=== PATIENT | female | born 1935 | race Caucasian/White ===

== ENCOUNTER → 2019-07-16 | Outpatient (CLI) | payer BC, MEDICARE | LOC: FB.MH 08:00 | PROVIDERS: ATTEND Psychiatry & Neurology Psychiatry | DX: F41.1 Generalized anxiety disorder (principal); G30.9 Alzheimer's disease, unspecified; F02.81 Dementia in other diseases classified elsewhere, unspecified severity, with behavioral disturbance | CPT/HCPCS: 99213 ==

== ENCOUNTER 2020-02-08 12:50 | Observation (INO) | payer MEDICARE ==
--- NOTE | 2020-02-08 13:11 | EDM.PDOC ---
ED HPI GENERAL MEDICAL PROBLEM - General Stated Complaint: FALL Time Seen by Provider: 02/08/20 13:10 Source of Information: Reports: Patient History Limitations: Reports: No Limitations - History of Present Illness INITIAL COMMENTS - FREE TEXT/NARRATIVE: 84-year-old female who presents to the emergency department via private vehicle by her daughter from [facility] after the patient has had 2 falls over the past 3 days and has had progressively worsening weakness. She has a history of dementia and is disoriented on a regular basis. She is unable to give any history and history that I obtained is from the daughter reports from talking to the assisted living personnel and further information from the EMS personnel. Apparently she has had some left knee pain for quite some time and has been complaining of that but after her fall on she had more left knee pain and she fell on Monday and was complaining of some right sided chest and flank pain. She apparently has been eating and drinking normally. She has had no vomiting. She has had no reported difficulty breathing. There has been no cough or nasal congestion. There have been no fevers or chills. The patient is unable to quantitate or qualitate her pain. This is really only history that I can obtain. There are no other associated signs or symptoms. There are no other modifying factors. Onset: Other (Last 3 days) Duration: Getting Worse Location: Reports: Chest, Abdomen, Lower Extremity, Left (Left knee) Quality: Reports: Other (Unable to provide this information) Improves with: Reports: Rest Worsens with: Reports: Other (Palpation), Movement Context: Reports: Trauma Associated Symptoms: Reports: No Other Symptoms (Except as above.) Treatments GRAIN BROKER: Reports: Other (see below) (Nothing) Right Thoracic Pain Score (Numeric/FACES): 5 - Related Data Allergies Allergy/AdvReac Type Severity Reaction Status Date / Time acetaminophen [From Tylenol] Allergy Agitation Verified 02/08/20 13:34 Home Meds: Home Meds Aspirin [Halfprin] 81 mg PO DAILY 02/08/20 [History] Cholecalciferol (Vitamin D3) [Vitamin D3] 1,000 units PO DAILY 02/08/20 [History ] Clopidogrel Bisulfate [Clopidogrel] 75 mg PO DAILY 02/08/20 [History] Cyanocobalamin (Vitamin B-12) [Vitamin B-12] 1,000 mcg PO DAILY 02/08/20 [ History] Diclofenac Sodium [Voltaren 1% Gel] 4 gram TOP TID 02/08/20 [History] Donepezil HCl [Aricept] 10 mg PO DAILY 02/08/20 [History] Gabapentin [Neurontin] 200 mg PO BID 02/08/20 [History] Indapamide 1.25 mg PO MOWEFR 02/08/20 [History] Levothyroxine [Synthroid] 88 mcg PO SUTUWETHSA 02/08/20 [History] Levothyroxine [Synthroid] 132 mcg PO MOFR 02/08/20 [History] Magnesium Hydroxide [Milk of Magnesia] 30 ml PO DAILY PRN 02/08/20 [History] Memantine HCl [Namenda] 10 mg PO BID 02/08/20 [History] Metoprolol Tartrate 25 mg PO BID 02/08/20 [History] Mirtazapine [Remeron] 30 mg PO BEDTIME 02/08/20 [History] Potassium Chloride [Klor-Con 10] 10 meq PO DAILY 02/08/20 [History] QUEtiapine [SEROquel] 25 mg PO BID PRN 02/08/20 [History] QUEtiapine [SEROquel] 50 mg PO TID 02/08/20 [History] Sertraline [Zoloft] 25 mg PO DAILY 02/08/20 [History] amLODIPine [Norvasc] 5 mg PO DAILY 02/08/20 [History] lisinopriL [Lisinopril] 20 mg PO DAILY 02/08/20 [History] Past Medical History Cardiovascular History: Reports: High Cholesterol, Hypertension Genitourinary History: Reports: Chronic Renal Insuffiency (States 3) Neurological History: Reports: Other (See Below) (Dementia) - Past Surgical History Cardiovascular Surgical History: Reports: Carotid Endarterectomy (Left) GI Surgical History: Reports: Cholecystectomy Social & Family History - Tobacco Use Smoking Status *Q: Never Smoker - Alcohol Use Alcohol Use History: No - Living Situation & Occupation Living situation: Reports: Extended Care Facility (Patient resides at [facility].) Occupation: Retired ED ROS GENERAL - Review of Systems Review Of Systems: Unable To Obtain Reason Not Obtained: The patient cannot provide me this information 2nd to dementia. ED EXAM, GENERAL - Physical Exam Exam: See Below Exam Limited By: No Limitations General Appearance: No Apparent Distress, Obese, Other (She is asleep when I come in to evaluate her but she awakens easily and her but she is confused and cannot provide me with any information) Eye Exam: Bilateral Eye: EOMI, Normal Inspection Ears: Normal External Exam, Hearing Loss (Appear somewhat hard of hearing) Ear Exam: Bilateral Ear: Auricle Normal Nose: Normal Inspection, Normal Mucosa, No Blood Throat/Mouth: Normal Inspection, Normal Lips, Normal Oropharynx, Normal Voice, No Airway Compromise Head: Atraumatic, Normocephalic Neck: Normal Inspection, Supple, Non-Tender, Full Range of Motion Respiratory/Chest: No Respiratory Distress, Lungs Clear, Normal Breath Sounds, No Accessory Muscle Use, Chest Non-Tender Cardiovascular: Normal Peripheral Pulses, Regular Rate, Rhythm, No Edema Peripheral Pulses: 2+: Radial (L), Radial (R), Popliteal (R), Dorsalis Pedis (L) , Dorsalis Pedis (R) GI/Abdominal: Normal Bowel Sounds, Soft, No Mass, Tender (Overall right sided flank area.). No: Guarding Back Exam: Normal Inspection, Full Range of Motion Extremities: Normal Inspection, Normal Capillary Refill, Pedal Edema, Other ( Tenderness with palpation around the left knee. There is no effusion. There is no increased warmth.). No: Joint Swelling, Increased Warmth Neurological: Alert, CN II-XII Intact, No Motor/Sensory Deficits, Disoriented Skin Exam: Warm, Dry, Intact, Normal Color, No Rash Course - Vital Signs Last Recorded V/S: Last Vital Signs Temp 36.2 C 02/09/20 00:00 Pulse 86 02/09/20 00:00 Resp 20 02/09/20 00:00 BP 168/72 H 02/09/20 00:00 Pulse Ox 96 02/09/20 00:00 - Orders/Labs/Meds Orders: Active Orders 24 hr Category Date Time Status Insert Urinary Catheter [OM.PC] Q24H Care 02/08/20 13:45 Ordered Cervical Spine wo Cont [CT] Stat Exams 02/08/20 13:35 Taken Chest Abdomen Pelvis wo Cont [CT] Stat Exams 02/08/20 13:35 Taken Head wo Cont [CT] Stat Exams 02/08/20 13:35 Taken Knee 1V or 2V Lt [CR] Stat Exams 02/08/20 15:41 Taken CULTURE URINE [RM] Stat Lab 02/08/20 14:37 Received Medication Orders Amlodipine Besylate (Norvasc) 5 mg PO DAILY [facility] Aspirin (Halfprin) 81 mg PO DAILY [facility] Ceftriaxone Sodium (Rocephin) 1 gm IM Q24H [facility] Last Admin: 02/08/20 18:09 Dose: 1 gm Cholecalciferol (Vitamin D3) 25 mcg PO DAILY [facility] Clopidogrel Bisulfate (Plavix) 75 mg PO DAILY [facility] Cyanocobalamin (Vitamin B12) 1,000 mcg PO DAILY [facility] Diclofenac Sodium (Voltaren 1% Gel) 4 gm TOP TID [facility] Last Admin: 02/08/20 21:46 Dose: 1 applic Donepezil HCl (Aricept) 10 mg PO DAILY [facility] Gabapentin (Neurontin) 200 mg PO BID [facility] Last Admin: 02/08/20 20:13 Dose: 200 mg Ibuprofen (Motrin) 200 mg PO Q6H PRN PRN Reason: Pain (mild 1-3) Last Admin: 02/08/20 20:12 Dose: 200 mg Indapamide (Indapamide) 1.25 mg PO MoWeFr@0800 [facility] Levothyroxine Sodium (Synthroid) 88 mcg PO SUTUWETHSA [facility] Levothyroxine Sodium (Synthroid) 132 mcg PO MOFR [facility] Lisinopril (Prinivil) 20 mg PO DAILY [facility] Magnesium Hydroxide (Milk Of Magnesia) 30 ml PO DAILY PRN PRN Reason: Constipation Memantine (Namenda) 10 mg PO BID [facility] Last Admin: 02/08/20 20:12 Dose: 10 mg Metoprolol Tartrate (Lopressor) 25 mg PO BID [facility] Last Admin: 02/08/20 20:11 Dose: 25 mg Mirtazapine (Remeron) 30 mg PO BEDTIME [facility] Last Admin: 02/08/20 20:12 Dose: 30 mg Ondansetron HCl (Zofran Odt) 4 mg PO Q6H PRN PRN Reason: nausea, able to take PO Potassium Chloride (Klor-Con 10) 10 meq PO DAILY [facility] Quetiapine Fumarate (Seroquel) 50 mg PO TID [facility] Last Admin: 02/08/20 20:14 Dose: 50 mg Quetiapine Fumarate (Seroquel) 25 mg PO BID PRN PRN Reason: Agitation Last Admin: 02/08/20 19:18 Dose: 25 mg Sertraline HCl (Zoloft) 25 mg PO DAILY [facility] Tramadol HCl (Ultram) 50 mg PO Q8H PRN PRN Reason: Pain Labs: Laboratory Tests 02/08/20 02/08/20 02/08/20 Range/Units 14:25 14:25 14:37 WBC 6.8 (4.5-12.0) X10-3/uL RBC 4.09 (3.23-5.20) x10(6)uL Hgb 12.2 (11.5-15.5) g/dL Hct 38.8 (30.0-51.3) % MCV 94.8 (80-96) fL MCH 29.8 (27.7-33.6) pg MCHC 31.4 L (32.2-35.4) g/dL RDW 13.0 (11.5-15.5) % Plt Count 233 (125-369) X10(3)uL MPV 8.4 (7.4-10.4) fL Neut % (Auto) 65.6 (46-82) % Lymph % (Auto) 15.8 (13-37) % [place] % (Auto) 9.7 (4-12) % Eos % (Auto) 5 (1.0-5.0) % Baso % (Auto) 4 H (0-2) % Neut # (Auto) 4.4 (1.6-8.3) # Lymph # (Auto) 1.1 (0.6-5.0) # [place] # (Auto) 0.7 (0.0-1.3) # Eos # (Auto) 0.3 (0.0-0.8) # Baso # (Auto) 0.3 H (0.0-0.2) # Sodium 140 (135-145) mmol/L Potassium 4.1 (3.5-5.3) mmol/L Chloride 104 (100-110) mmol/L Carbon Dioxide 30 (21-32) mmol/L BUN 32 H (7-18) mg/dL Creatinine 1.7 H (0.55-1.02) mg/dL Est Cr Clr Drug Dosing TNP Estimated GFR (MDRD) 29 L (>60) BUN/Creatinine Ratio 18.8 (9-20) Glucose 121 H (80-116) mg/dL Calcium 8.9 (8.6-10.2) mg/dL Magnesium 1.7 L (1.8-2.5) mg/dL Total Bilirubin 0.3 (0.1-1.3) mg/dL AST 7 (5-25) IU/L ALT 16 (12-36) U/L Alkaline Phosphatase 94 (56-112) IU/L Total Protein 7.4 (6.0-8.0) g/dL Albumin 3.1 L (3.2-4.6) g/dL Globulin 4.3 g/dL Albumin/Globulin Ratio 0.7 Urine Color Yellow (YELLOW) Urine Appearance Slightly cloudy (CLEAR) Urine pH 5.0 (5.0-6.5) Ur Specific [place] 1.020 (1.010-1.025) Urine Protein Negative (NEGATIVE) mg/dL Urine Glucose (UA) Normal (NORMAL) mg/dL Urine Ketones Negative (NEGATIVE) mg/dL Urine Occult Blood Negative (NEGATIVE) Urine Nitrite Negative (NEGATIVE) Urine Bilirubin Negative (NEGATIVE) Urine Urobilinogen Normal (NEGATIVE) mg/dL Ur Leukocyte Esterase Negative (NEGATIVE) Urine RBC 0-5 (0-5) Urine WBC 0-5 (0-5) Ur Squamous Epith Cells Occasional (NS,R,O) Urine Bacteria Rare H (NS) Urine Mucus Few H (NS) Meds: Medications Generic Name Dose Route Start Last Admin Trade Name Freq PRN Reason Stop Dose Admin Amlodipine Besylate 5 mg 02/09/20 09:00 Norvasc PO DAILY [facility] Aspirin 81 mg 02/09/20 09:00 Halfprin PO DAILY [facility] Ceftriaxone Sodium 1 gm 02/08/20 17:00 02/08/20 18:09 Rocephin IM 1 gm Q24H [facility] Administration Cholecalciferol 25 mcg 02/09/20 09:00 Vitamin D3 PO DAILY [facility] Clopidogrel Bisulfate 75 mg 02/09/20 09:00 Plavix PO DAILY [facility] Cyanocobalamin 1,000 mcg 02/09/20 09:00 Vitamin B12 PO DAILY [facility] Diclofenac Sodium 4 gm 02/08/20 21:00 02/08/20 21:46 Voltaren 1% Gel TOP 1 applic TID [facility] Administration Donepezil HCl 10 mg 06/14/20 09:00 Aricept PO DAILY [facility] Gabapentin 200 mg 02/08/20 21:00 02/08/20 20:13 Neurontin PO 200 mg BID [facility] Administration Ibuprofen 200 mg 02/08/20 16:36 02/08/20 20:12 Motrin PO 200 mg Q6H PRN Administration Pain (mild 1-3) Indapamide 1.25 mg 02/10/20 08:00 Indapamide PO MoWeFr@0800 [facility] Levothyroxine Sodium 88 mcg 02/09/20 09:00 Synthroid PO SUTUWETHSA [facility] Levothyroxine Sodium 132 mcg 02/10/20 09:00 Synthroid PO MOFR [facility] Lisinopril 20 mg 02/09/20 09:00 Prinivil PO DAILY [facility] Magnesium Hydroxide 30 ml 02/08/20 16:40 Milk Of Magnesia PO DAILY PRN Constipation Memantine 10 mg 02/08/20 21:00 02/08/20 20:12 Namenda PO 10 mg BID [facility] Administration Metoprolol Tartrate 25 mg 02/08/20 21:00 02/08/20 20:11 Lopressor PO 25 mg BID [facility] Administration Mirtazapine 30 mg 02/08/20 21:00 02/08/20 20:12 Remeron PO 30 mg BEDTIME [facility] Administration Ondansetron HCl 4 mg 02/08/20 16:36 Zofran Odt PO Q6H PRN nausea, able to take PO Potassium Chloride 10 meq 02/09/20 09:00 Klor-Con 10 PO DAILY [facility] Quetiapine Fumarate 50 mg 02/08/20 21:00 02/08/20 20:14 Seroquel PO 50 mg TID [facility] Administration Quetiapine Fumarate 25 mg 02/08/20 16:40 02/08/20 19:18 Seroquel PO 25 mg BID PRN Administration Agitation Sertraline HCl 25 mg 02/09/20 09:00 Zoloft PO DAILY [facility] Tramadol HCl 50 mg 02/08/20 16:40 Ultram PO Q8H PRN Pain Discontinued Medications Generic Name Dose Route Start Last Admin Trade Name Freq PRN Reason Stop Dose Admin Tramadol HCl 50 mg 02/08/20 13:35 02/08/20 13:43 Ultram PO 02/08/20 13:36 50 mg ONETIME ONE Administration - Radiology Interpretation Free Text/Narrative:: CT scan of head, neck, chest, abdomen and pelvis all done without contrast showed no acute abnormalities per the [facility] radiologist. - Re-Assessments/Exams Free Text/Narrative Re-Assessment/Exam: 02/08/20 16:45: The patient's blood tests are reassuring. Her urine test does show some evidence of a urinary tract infection. The CT scans of her head, neck , chest, abdomen and pelvis shows no acute abnormality. The x-ray of her left knee is pending at this point. She is really not able to ambulate without extreme assistance that she has fallen twice in the past 3 days with progressive weakness. She does appear retracted infection. I do not feel that it would be safe to discharge her back to the memory care unit. She is at significant risk for further falls and ability and even mortality. The patient is DNR/DNI according to the family what they would want reversible causes treated and they would want the patient to be able to get back to baseline if possible. Therefore, the patient will be admitted. She will be treated with IV antibiotics and will have physical therapy and occupational therapy evaluation over the next 2 days. I discussed patient's case with Dr. Hammer, hospitalist , and she has agreed to admit the patient. I discussed this with the patient's daughter and the patient's daughter is in agreement with the plan for admission. Departure - Departure Time of Disposition: 17:00 Disposition: Refer to Observation Condition: Fair (Stable) Clinical Impression: Multiple falls, Rapidly progressive weakness UTI (urinary tract infection) Qualifiers: Urinary tract infection type: site unspecified Hematuria presence: without hematuria Qualified Code(s): N39.0 - Urinary tract infection, site not specified - Discharge Information Sepsis Event Note (ED) - Focused Exam Vital Signs: Vital Signs Temp Pulse Resp BP Pulse Ox 02/08/20 12:50 36.3 C 72 16 128/53 L 94 L - My Orders Last 24 Hours: My Active Orders 02/08/20 13:35 Cervical Spine wo Cont [CT] Stat Chest Abdomen Pelvis wo Cont [CT] Stat Head wo Cont [CT] Stat 02/08/20 13:45 Insert Urinary Catheter [OM.PC] Q24H 02/08/20 14:37 CULTURE URINE [RM] Stat 02/08/20 15:41 Knee 1V or 2V Lt [CR] Stat - Assessment/Plan Last 24 Hours: My Active Orders 02/08/20 13:35 Cervical Spine wo Cont [CT] Stat Chest Abdomen Pelvis wo Cont [CT] Stat Head wo Cont [CT] Stat 02/08/20 13:45 Insert Urinary Catheter [OM.PC] Q24H 02/08/20 14:37 CULTURE URINE [RM] Stat 02/08/20 15:41 Knee 1V or 2V Lt [CR] Stat
[2020-02-08] MEDS ORDERED: traMADol 50 MG Tab PO ONE (13:35)
[2020-02-08] MEDS ORDERED: Ondansetron 4 MG Tab.DIS PO PRN (16:36)
[2020-02-08] MEDS ORDERED: QUEtiapine 25 MG Tab PO PRN (16:40)
[2020-02-08] MEDS ORDERED: Magnesium Hydroxide 400 MG/5 ML Susp 30 ML Cup PO PRN (16:40)
--- NOTE | 2020-02-08 16:52 | PCM.HP.2 ---
H&P History of Present Illness - General Date of Service: 02/08/20 Admit Problem/Dx: Admission Diagnosis/Problem Admission Diagnosis/Problem Recurrent falls, Right chest wall pain, Left knee pain, UTI-suspected Source of Information: Patient (limited), EMS Notes Reviewed, Family, Provider - History of Present Illness Initial Comments - Free Text/Narative: Lissy is an 84 yr old female who was brought in by her daughter to ER with history of recurrent falls over the past 2 days. Fell initially on , was complaining of left knee pain but got up and was ambulating on it. Fell again yesterday, complaining of right side chest pain which worsened today. History of Dementia, in the memory care unit at [facility], has wander guard on left leg. Jyothi, her daughter has not seen her since July due to COVID restrictions at [facility], does not feel her confusion is worse. She is on Seroquel as she was having more wild behaviors which has stabilized with the medication. Jyothi stated that Dr Melendez was hoping to decrease it to the lowest dose while maintaining symptom control. She has not had loss of appetite, eats all her food. Does not wear hearing aids. No shortness of breath , sinus symptoms, fevers, chills, abdominal pain. CT head to pelvis was negative for acute changes. Slightly cloudy urine with some bacteria on straight cathed urine/ Knee x-ray was negative for fracture. Jyothi will be bringing her medications from [facility]) for her use. She is a DNR/ DNI. Gets agitated on acetaminophen. Has urine incontinence, wears briefs. Wears PAWEL hose at [facility]. - Related Data Allergies/Adverse Reactions: Allergies Allergy/AdvReac Type Severity Reaction Status Date / Time acetaminophen [From Tylenol] Allergy Agitation Verified 02/08/20 13:34 Home Medications: Home Meds Aspirin [Halfprin] 81 mg PO DAILY 02/08/20 [History] Cholecalciferol (Vitamin D3) [Vitamin D3] 1,000 units PO DAILY 02/08/20 [History ] Clopidogrel Bisulfate [Clopidogrel] 75 mg PO DAILY 02/08/20 [History] Cyanocobalamin (Vitamin B-12) [Vitamin B-12] 1,000 mcg PO DAILY 02/08/20 [ History] Diclofenac Sodium [Voltaren 1% Gel] 4 gram TOP TID 02/08/20 [History] Donepezil HCl [Aricept] 10 mg PO DAILY 02/08/20 [History] Gabapentin [Neurontin] 200 mg PO BID 02/08/20 [History] Indapamide 1.25 mg PO MOWEFR 02/08/20 [History] Levothyroxine [Synthroid] 88 mcg PO SUTUWETHSA 02/08/20 [History] Levothyroxine [Synthroid] 132 mcg PO MOFR 02/08/20 [History] Magnesium Hydroxide [Milk of Magnesia] 30 ml PO DAILY PRN 02/08/20 [History] Memantine HCl [Namenda] 10 mg PO BID 02/08/20 [History] Metoprolol Tartrate 25 mg PO BID 02/08/20 [History] Mirtazapine [Remeron] 30 mg PO BEDTIME 02/08/20 [History] Potassium Chloride [Klor-Con 10] 10 meq PO DAILY 02/08/20 [History] QUEtiapine [SEROquel] 25 mg PO BID PRN 02/08/20 [History] QUEtiapine [SEROquel] 50 mg PO TID 02/08/20 [History] Sertraline [Zoloft] 25 mg PO DAILY 02/08/20 [History] amLODIPine [Norvasc] 5 mg PO DAILY 02/08/20 [History] lisinopriL [Lisinopril] 20 mg PO DAILY 02/08/20 [History] H&P Review of Systems - Review of Systems: Review Of Systems: See Below General: Reports: No Symptoms HEENT: Reports: No Symptoms Pulmonary: Reports: No Symptoms Cardiovascular: Reports: Chest Pain Gastrointestinal: Reports: No Symptoms Genitourinary: Reports: No Symptoms Musculoskeletal: Reports: Joint Pain (left knee) Psychiatric: Reports: Confusion Neurological: Denies: Trouble Speaking Hematologic/Lymphatic: Reports: No Symptoms Immunologic: Reports: No Symptoms Exam - Exam Exam: See Below - Vital Signs Vital Signs: Last Vital Signs Temp 97.4 F 02/08/20 12:50 Pulse 72 02/08/20 12:50 Resp 16 02/08/20 12:50 BP 128/53 L 02/08/20 12:50 Pulse Ox 94 L 02/08/20 12:50 Weight: 190 lb - Exam General: Alert, Oriented (person, but not place or time), Cooperative. No: Mild Distress HEENT: PERRLA, Conjunctiva Clear, EOMI, Hearing Intact, Mucosa Moist & Silo, Nares Patent, Normal Nasal Septum, Posterior Pharynx Clear, TMs Clear Neck: Supple, Trachea Midline. No: Lymphadenopathy Lungs: Clear to Auscultation, Normal Respiratory Effort, Other (TTP on right side, no step offs noted) Cardiovascular: Regular Rate, Regular Rhythm GI/Abdominal Exam: Normal Bowel Sounds, Soft, Non-Tender, No Distention (Female) Exam: Deferred Rectal (Female) Exam: Deferred Extremities: Pedal Edema (trace, PAWEL hose BLE, wander guard on LLE), Joint Swelling (left prepatellar, NT) Skin: Warm, Dry, Intact. No: Ecchymosis (left knee) Neuro Extensive - Mental Status: Disorientation to Place, Disorientation to Time , Memory Loss-Recent Events (does not recognize her daughter anymore) Neuro Extensive - Motor, Sensory, Reflexes: CN II-XII Intact Psychiatric: No: Labile Mood, Anxious, Agitated - Patient Data Lab Results Last 24 hrs: Laboratory Results - last 24 hr 02/08/20 02/08/20 02/08/20 Range/Units 14:25 14:25 14:37 WBC 6.8 (4.5-12.0) X10-3/uL RBC 4.09 (3.23-5.20) x10(6)uL Hgb 12.2 (11.5-15.5) g/dL Hct 38.8 (30.0-51.3) % MCV 94.8 (80-96) fL MCH 29.8 (27.7-33.6) pg MCHC 31.4 L (32.2-35.4) g/dL RDW 13.0 (11.5-15.5) % Plt Count 233 (125-369) X10(3)uL MPV 8.4 (7.4-10.4) fL Neut % (Auto) 65.6 (46-82) % Lymph % (Auto) 15.8 (13-37) % [place] % (Auto) 9.7 (4-12) % Eos % (Auto) 5 (1.0-5.0) % Baso % (Auto) 4 H (0-2) % Neut # (Auto) 4.4 (1.6-8.3) # Lymph # (Auto) 1.1 (0.6-5.0) # Weston # (Auto) 0.7 (0.0-1.3) # Eos # (Auto) 0.3 (0.0-0.8) # Baso # (Auto) 0.3 H (0.0-0.2) # Sodium 140 (135-145) mmol/L Potassium 4.1 (3.5-5.3) mmol/L Chloride 104 (100-110) mmol/L Carbon Dioxide 30 (21-32) mmol/L BUN 32 H (7-18) mg/dL Creatinine 1.7 H (0.55-1.02) mg/dL Est Cr Clr Drug Dosing TNP Estimated GFR (MDRD) 29 L (>60) BUN/Creatinine Ratio 18.8 (9-20) Glucose 121 H (80-116) mg/dL Calcium 8.9 (8.6-10.2) mg/dL Magnesium 1.7 L (1.8-2.5) mg/dL Total Bilirubin 0.3 (0.1-1.3) mg/dL AST 7 (5-25) IU/L ALT 16 (12-36) U/L Alkaline Phosphatase 94 (56-112) IU/L Total Protein 7.4 (6.0-8.0) g/dL Albumin 3.1 L (3.2-4.6) g/dL Globulin 4.3 g/dL Albumin/Globulin Ratio 0.7 Urine Color Yellow (YELLOW) Urine Appearance Slightly cloudy (CLEAR) Urine pH 5.0 (5.0-6.5) Ur Specific [place] 1.020 (1.010-1.025) Urine Protein Negative (NEGATIVE) mg/dL Urine Glucose (UA) Normal (NORMAL) mg/dL Urine Ketones Negative (NEGATIVE) mg/dL Urine Occult Blood Negative (NEGATIVE) Urine Nitrite Negative (NEGATIVE) Urine Bilirubin Negative (NEGATIVE) Urine Urobilinogen Normal (NEGATIVE) mg/dL Ur Leukocyte Esterase Negative (NEGATIVE) Urine RBC 0-5 (0-5) Urine WBC 0-5 (0-5) Ur Squamous Epith Cells Occasional (NS,R,O) Urine Bacteria Rare H (NS) Urine Mucus Few H (NS) Result Diagrams: 02/08/20 14:25 02/08/20 14:25 Sepsis Event Note - Evaluation Sepsis Screening Result: No Definite Risk - Focused Exam Vital Signs: Vital Signs Temp Pulse Resp BP Pulse Ox 02/08/20 12:50 97.4 F 72 16 128/53 L 94 L Date Exam was Performed: 02/08/20 Time Exam was Performed: 16:44 *Q Meaningful Use (ADM) - VTE *Q VTE Mechanical Contraindications *Q: At Risk for Falls - VTE Risk Assess *Q Each Risk Factor Represents 3 Points: Age 75 Years or Greater Total Score 3 Point Risk Factors: 3 - Problem List (1) Recurrent falls SNOMED Code(s): 148380865 ICD Code: R29.6 - REPEATED FALLS Status: Acute Current Visit: Yes Onset Date: ~02/06/20 Problem Details: and 02/07/2020 (2) Right-sided chest wall pain SNOMED Code(s): 049658179, 519905019 ICD Code: R07.89 - OTHER CHEST PAIN Status: Acute Current Visit: Yes Onset Date: ~02/07/20 (3) Left knee pain SNOMED Code(s): 98190714 ICD Code: M25.562 - PAIN IN LEFT KNEE Status: Acute Current Visit: Yes Onset Date: ~02/06/20 (4) UTI (urinary tract infection) SNOMED Code(s): 68967093 ICD Code: N39.0 - URINARY TRACT INFECTION, SITE NOT SPECIFIED Status: Acute Current Visit: Yes Qualifiers: Urinary tract infection type: acute cystitis Hematuria presence: without hematuria Qualified Code(s): N30.00 - Acute cystitis without hematuria (5) Dementia with behavioral disturbance SNOMED Code(s): 8266690685702 ICD Code: F03.91 - UNSPECIFIED DEMENTIA WITH BEHAVIORAL DISTURBANCE Status : Chronic Current Visit: Yes Qualifiers: Dementia type: unspecified type Qualified Code(s): F03.91 - Unspecified dementia with behavioral disturbance (6) Adult hypothyroidism SNOMED Code(s): 39191956 ICD Code: E03.9 - HYPOTHYROIDISM, UNSPECIFIED Status: Chronic Current Visit: Yes (7) Hypertension SNOMED Code(s): 38892392 ICD Code: I10 - ESSENTIAL (PRIMARY) HYPERTENSION Status: Chronic Current Visit: Yes Qualifiers: Hypertension type: essential hypertension Qualified Code(s): I10 - Essential (primary) hypertension Problem List Initiated/Reviewed/Updated: Yes Orders Last 24hrs: Active Orders 24 hr Category Date Time Status Admission Status [Patient Status] [ADT] Routine ADT 02/08/20 16:16 Active Antiembolic Devices [RC] .Routine Care 02/08/20 16:36 Ordered Insert Urinary Catheter [OM.PC] Q24H Care 02/08/20 13:45 Ordered Oxygen Therapy [RC] PRN Care 02/08/20 16:36 Ordered Up With Assistance [RC] ASDIRECTED Care 02/08/20 16:36 Ordered Up to Chair [RC] ASDIRECTED Care 02/08/20 16:36 Ordered Urinary Catheter Assessment [RC] QSHIFT Care 02/08/20 13:36 Active VTE/DVT Education [RC] Per Unit Routine Care 02/08/20 16:36 Ordered Vital Signs [RC] Q4H Care 02/08/20 16:36 Ordered OT Evaluation and Treatment [CONS] Routine Cons 02/08/20 16:36 Ordered PT Evaluation and Treatment [CONS] Routine Cons 02/10/20 06:00 Ordered Regular Diet [DIET] Diet 02/08/20 Dinner Ordered Cervical Spine wo Cont [CT] Stat Exams 02/08/20 13:35 Ordered Chest Abdomen Pelvis wo Cont [CT] Stat Exams 02/08/20 13:35 Taken Head wo Cont [CT] Stat Exams 02/08/20 13:35 Taken Knee 1V or 2V Lt [CR] Stat Exams 02/08/20 15:41 Taken BASIC METABOLIC PANEL,BMP [CHEM] Routine Lab 02/09/20 06:00 Ordered CULTURE URINE [RM] Stat Lab 02/08/20 14:37 Received Aspirin [Halfprin] Med 02/09/20 09:00 Ordered 81 mg PO DAILY Cholecalciferol (Vitamin D3) [Vitamin D3] Med 02/09/20 09:00 Ordered 1,000 units PO DAILY Clopidogrel Bisulfate [Clopidogrel] Med 02/09/20 09:00 Ordered 75 mg PO DAILY Cyanocobalamin (Vitamin B-12) [Vitamin B-12] Med 02/09/20 09:00 Ordered 1,000 mcg PO DAILY Diclofenac Sodium [Voltaren 1% Gel] Med 02/08/20 21:00 Ordered 4 gram TOP TID Donepezil HCl [Aricept] Med 02/09/20 09:00 Ordered 10 mg PO DAILY Gabapentin [Neurontin] Med 02/08/20 21:00 Ordered 200 mg PO BID Ibuprofen [Motrin] Med 02/08/20 16:36 Ordered 200 mg PO Q6H PRN Indapamide [Indapamide] Med 02/10/20 16:40 Ordered 1.25 mg PO MOWEFR Levothyroxine [Synthroid] Med 02/10/20 09:00 Ordered 132 mcg PO MOFR Levothyroxine [Synthroid] Med 02/09/20 09:00 Ordered 88 mcg PO SUTUWETHSA Magnesium Hydroxide [Milk of Magnesia] Med 02/08/20 16:40 Ordered 30 ml PO DAILY PRN Memantine HCl [Namenda] Med 02/08/20 21:00 Ordered 10 mg PO BID Metoprolol Tartrate [Metoprolol Tartrate] Med 02/08/20 21:00 Ordered 25 mg PO BID Mirtazapine [Remeron] Med 02/08/20 21:00 Ordered 30 mg PO BEDTIME Ondansetron [Zofran ODT] Med 02/08/20 16:36 Ordered 4 mg PO Q6H PRN Potassium Chloride [Klor-Con 10] Med 02/09/20 09:00 Ordered 10 meq PO DAILY QUEtiapine [SEROquel] Med 02/08/20 16:40 Ordered 25 mg PO BID PRN QUEtiapine [SEROquel] Med 02/08/20 21:00 Ordered 50 mg PO TID Sertraline [Zoloft] Med 02/09/20 09:00 Ordered 25 mg PO DAILY amLODIPine [Norvasc] Med 02/09/20 09:00 Ordered 5 mg PO DAILY cefTRIAXone [Rocephin] Med 02/08/20 16:45 Ordered 1 gm IM Q24H lisinopriL [Lisinopril] Med 02/09/20 09:00 Ordered 20 mg PO DAILY traMADol [Ultram] Med 02/08/20 16:40 Ordered 50 mg PO Q8H PRN Antiembolic Hose [OM.PC] Per Unit Routine Oth 02/08/20 16:36 Ordered Resuscitation Status Routine Resus Stat 02/08/20 16:36 Ordered Medication Orders Ceftriaxone Sodium (Rocephin) 1 gm IM Q24H RHIANNON Ibuprofen (Motrin) 200 mg PO Q6H PRN PRN Reason: Pain (mild 1-3) Non-Formulary Medication (Amlodipine [Norvasc]) 5 mg PO DAILY RHIANNON Non-Formulary Medication (Aspirin [Halfprin]) [address] [facility] Non-Formulary Medication (Cholecalciferol (Vitamin D3) [Vitamin D3]) 1,000 units PO DAILY RHIANNON Non-Formulary Medication (Clopidogrel Bisulfate [Clopidogrel]) 75 mg PO DAILY RHIANNON Non-Formulary Medication (Cyanocobalamin (Vitamin B-12) [Vitamin B-12]) 1,000 mcg PO DAILY RHIANNON Non-Formulary Medication (Diclofenac Sodium [Voltaren 1% Gel]) 4 gram TOP TID RHIANNON Non-Formulary Medication (Donepezil Hcl [Aricept]) 10 mg PO DAILY RHIANNON Non-Formulary Medication (Gabapentin [Neurontin]) 200 mg PO BID RHIANNON Non-Formulary Medication (Indapamide [Indapamide]) 1.25 mg PO MOWEFR RHIANNON Non-Formulary Medication (Levothyroxine [Synthroid]) 88 mcg PO SUTUWETHSA RHIANNON Non-Formulary Medication (Levothyroxine [Synthroid]) 132 mcg PO MOFR RHIANNON Non-Formulary Medication (Lisinopril [Lisinopril]) 20 mg PO DAILY RHIANNON Non-Formulary Medication (Magnesium Hydroxide [Milk Of Magnesia]) 30 ml PO DAILY PRN PRN Reason: Constipation Non-Formulary Medication (Memantine Hcl [Namenda]) 10 mg PO BID RHIANNON Non-Formulary Medication (Metoprolol Tartrate [Metoprolol Tartrate]) 25 mg PO BID RHIANNON Non-Formulary Medication (Mirtazapine [Remeron]) 30 mg PO BEDTIME RHIANNON Non-Formulary Medication (Potassium Chloride [Klor-Con 10]) 10 meq PO DAILY RHIANNON Non-Formulary Medication (Quetiapine [Seroquel]) 50 mg PO TID RHIANNON Non-Formulary Medication (Quetiapine [Seroquel]) 25 mg PO BID PRN PRN Reason: Agitation Non-Formulary Medication (Sertraline [Zoloft]) [address] [facility] Ondansetron HCl (Zofran Odt) 4 mg PO Q6H PRN PRN Reason: nausea, able to take PO Tramadol HCl (Ultram) 50 mg PO Q8H PRN PRN Reason: Pain Assessment/Plan Comment:: 1. Admit for observation for suspected UTI, recurrent falls. 2. Rocephin 1 g IM q24h while UC is pending. Continue home medications, family will bring in her cassettes from [facility]) 3. PT/OT consult for Monday am. Tramadol 50 mg q8h as needed pain, Ibuprofen low dose 200 mg as needed will not affect her kidney function. Repeat BMP tomorrow. 4. Regular diet. 5. Up with assistance and up to chair TID. 6. DVT prophylaxis: PAWELs BLE already on from [facility]. 7. DNR/DNI per daughter Jyothi. 8. Anticipate discharge to [facility] on Monday after PT/OT assessment with Home Health with therapies - Mortality Measure Prognosis:: Good
[2020-02-08] MEDS ORDERED: cefTRIAXone 1 GM Vial IM SCH (17:00)
[2020-02-08] MEDS: Metoprolol Tartrate 25 MG Tab *PTOM PO SCH (20:11)
[2020-02-08] MEDS: Mirtazapine 30 MG Tab PO SCH (20:12)
[2020-02-08] MEDS: Ibuprofen 200 MG Tab PO PRN (20:12)
[2020-02-08] MEDS: Memantine 10 MG Tab *PTOM PO SCH (20:12)
[2020-02-08] MEDS: Gabapentin 100 MG Cap PO SCH (20:13)
[2020-02-08] MEDS: QUEtiapine 25 MG Tab PO SCH (20:14)
[2020-02-08] MEDS: Diclofenac Sodium 1% Gel 100 GM Tube TOP SCH (21:46)
[2020-02-09] MEDS: Potassium Chloride 10 MEQ Tab.ER *PTOM PO SCH (08:03)
[2020-02-09] MEDS: Metoprolol Tartrate 25 MG Tab *PTOM PO SCH ×2 (08:04→20:42)
[2020-02-09] MEDS: Memantine 10 MG Tab *PTOM PO SCH ×2 (08:05→20:42)
[2020-02-09] MEDS: Lisinopril 20 MG Tab *PTOM PO SCH (08:06)
[2020-02-09] MEDS: amLODIPine 5 MG Tab *PTOM PO SCH (08:06)
[2020-02-09] MEDS: Clopidogrel 75 MG Tab *PTOM PO SCH (08:06)
[2020-02-09] MEDS: Gabapentin 100 MG Cap PO SCH ×2 (08:06→20:42)
[2020-02-09] MEDS: Cholecalciferol (Vitamin D3) 25 MCG Tab *PTOM PO SCH (08:07)
[2020-02-09] MEDS: QUEtiapine 25 MG Tab PO SCH ×3 (08:07→20:42)
[2020-02-09] MEDS: traMADol 50 MG Tab PO PRN (08:08)
[2020-02-09] MEDS: Diclofenac Sodium 1% Gel 100 GM Tube TOP SCH ×3 (08:13→20:44)
[2020-02-09] MEDS: Cyanocobalamin (Vitamin B12) 1,000 MCG Tab *PTOM PO SCH (08:32)
[2020-02-09] MEDS ORDERED: Sertraline 25 MG Tab PO SCH (09:00)
[2020-02-09] MEDS ORDERED: Aspirin 81 MG Tab.EC *PTOM PO SCH (09:00)
[2020-02-09] MEDS ORDERED: Donepezil 10 MG Tab PO SCH (09:00)
[2020-02-09] MEDS ORDERED: Levothyroxine 88 MCG Tab PO SCH (09:00)
--- NOTE | 2020-02-09 10:01 | PCM.PN ---
- General Info Date of Service: 02/09/20 Admission Dx/Problem (Free Text): Lissy was agitated, crying and upset last evening so was at nurses station until she became more calm, did require an as needed Seroquel dose. She fell asleep around 1230 am even with taking all her evening medications. She ate 100 % of her breakfast this morning, no issues with her morning medications. Nursing notes that when she wants to get up she moves very quickly. Has been incontinent. Pleasantly confused this morning, oriented to person only. Vitals are stable. Denies any pain of chest wall or knees until I did my exam. - Patient Data Vitals - Most Recent: Last Vital Signs Temp 97.5 F 02/09/20 07:20 Pulse 71 02/09/20 08:04 Resp 20 02/09/20 07:20 BP 167/86 H 02/09/20 08:06 Pulse Ox 93 L 02/09/20 07:20 Weight - Most Recent: 190 lb Lab Results Last 24 Hours: Laboratory Results - last 24 hr 02/08/20 02/08/20 02/08/20 Range/Units 14:25 14:25 14:37 WBC 6.8 (4.5-12.0) X10-3/uL RBC 4.09 (3.23-5.20) x10(6)uL Hgb 12.2 (11.5-15.5) g/dL Hct 38.8 (30.0-51.3) % MCV 94.8 (80-96) fL MCH 29.8 (27.7-33.6) pg MCHC 31.4 L (32.2-35.4) g/dL RDW 13.0 (11.5-15.5) % Plt Count 233 (125-369) X10(3)uL MPV 8.4 (7.4-10.4) fL Neut % (Auto) 65.6 (46-82) % Lymph % (Auto) 15.8 (13-37) % [place] % (Auto) 9.7 (4-12) % Eos % (Auto) 5 (1.0-5.0) % Baso % (Auto) 4 H (0-2) % Neut # (Auto) 4.4 (1.6-8.3) # Lymph # (Auto) 1.1 (0.6-5.0) # [place] # (Auto) 0.7 (0.0-1.3) # Eos # (Auto) 0.3 (0.0-0.8) # Baso # (Auto) 0.3 H (0.0-0.2) # Sodium 140 (135-145) mmol/L Potassium 4.1 (3.5-5.3) mmol/L Chloride 104 (100-110) mmol/L Carbon Dioxide 30 (21-32) mmol/L BUN 32 H (7-18) mg/dL Creatinine 1.7 H (0.55-1.02) mg/dL Est Cr Clr Drug Dosing TNP Estimated GFR (MDRD) 29 L (>60) BUN/Creatinine Ratio 18.8 (9-20) Glucose 121 H (80-116) mg/dL Calcium 8.9 (8.6-10.2) mg/dL Magnesium 1.7 L (1.8-2.5) mg/dL Total Bilirubin 0.3 (0.1-1.3) mg/dL AST 7 (5-25) IU/L ALT 16 (12-36) U/L Alkaline Phosphatase 94 (56-112) IU/L Total Protein 7.4 (6.0-8.0) g/dL Albumin 3.1 L (3.2-4.6) g/dL Globulin 4.3 g/dL Albumin/Globulin Ratio 0.7 Urine Color Yellow (YELLOW) Urine Appearance Slightly cloudy (CLEAR) Urine pH 5.0 (5.0-6.5) Ur Specific [place] 1.020 (1.010-1.025) Urine Protein Negative (NEGATIVE) mg/dL Urine Glucose (UA) Normal (NORMAL) mg/dL Urine Ketones Negative (NEGATIVE) mg/dL Urine Occult Blood Negative (NEGATIVE) Urine Nitrite Negative (NEGATIVE) Urine Bilirubin Negative (NEGATIVE) Urine Urobilinogen Normal (NEGATIVE) mg/dL Ur Leukocyte Esterase Negative (NEGATIVE) Urine RBC 0-5 (0-5) Urine WBC 0-5 (0-5) Ur Squamous Epith Cells Occasional (NS,R,O) Urine Bacteria Rare H (NS) Urine Mucus Few H (NS) 02/08/ Range/Units 06:25 WBC (4.5-12.0) X10-3/uL RBC (3.23-5.20) x10(6)uL Hgb (11.5-15.5) g/dL Hct (30.0-51.3) % MCV (80-96) fL MCH (27.7-33.6) pg MCHC (32.2-35.4) g/dL RDW (11.5-15.5) % Plt Count (125-369) X10(3)uL MPV (7.4-10.4) fL Neut % (Auto) (46-82) % Lymph % (Auto) (13-37) % [place] % (Auto) (4-12) % Eos % (Auto) (1.0-5.0) % Baso % (Auto) (0-2) % Neut # (Auto) (1.6-8.3) # Lymph # (Auto) (0.6-5.0) # [place] # (Auto) (0.0-1.3) # Eos # (Auto) (0.0-0.8) # Baso # (Auto) (0.0-0.2) # Sodium 141 (135-145) mmol/L Potassium 3.9 (3.5-5.3) mmol/L Chloride 107 (100-110) mmol/L Carbon Dioxide 29 (21-32) mmol/L BUN 36 H (7-18) mg/dL Creatinine 1.6 H (0.55-1.02) mg/dL Est Cr Clr Drug Dosing 24.50 Estimated GFR (MDRD) 31 L (>60) BUN/Creatinine Ratio 22.5 H (9-20) Glucose 93 (80-116) mg/dL Calcium 8.5 L (8.6-10.2) mg/dL Magnesium (1.8-2.5) mg/dL Total Bilirubin (0.1-1.3) mg/dL AST (5-25) IU/L ALT (12-36) U/L Alkaline Phosphatase (56-112) IU/L Total Protein (6.0-8.0) g/dL Albumin (3.2-4.6) g/dL Globulin g/dL Albumin/Globulin Ratio Urine Color (YELLOW) Urine Appearance (CLEAR) Urine pH (5.0-6.5) Ur Specific [place] (1.010-1.025) Urine Protein (NEGATIVE) mg/dL Urine Glucose (UA) (NORMAL) mg/dL Urine Ketones (NEGATIVE) mg/dL Urine Occult Blood (NEGATIVE) Urine Nitrite (NEGATIVE) Urine Bilirubin (NEGATIVE) Urine Urobilinogen (NEGATIVE) mg/dL Ur Leukocyte Esterase (NEGATIVE) Urine RBC (0-5) Urine WBC (0-5) Ur Squamous Epith Cells (NS,R,O) Urine Bacteria (NS) Urine Mucus (NS) Med Orders - Current: Current Medications Amlodipine Besylate (Norvasc) 5 mg PO DAILY [facility] Last Admin: 02/09/20 08:06 Dose: 5 mg Aspirin (Halfprin) 81 mg PO DAILY [facility] Last Admin: 02/09/20 08:03 Dose: 81 mg Ceftriaxone Sodium (Rocephin) 1 gm IM Q24H [facility] Last Admin: 02/08/20 18:09 Dose: 1 gm Cholecalciferol (Vitamin D3) 25 mcg PO DAILY [facility] Last Admin: 02/09/20 08:07 Dose: 25 mcg Clopidogrel Bisulfate (Plavix) 75 mg PO DAILY [facility] Last Admin: 02/09/20 08:06 Dose: 75 mg Cyanocobalamin (Vitamin B12) 1,000 mcg PO DAILY [facility] Last Admin: 02/09/20 08:32 Dose: 1,000 mcg Diclofenac Sodium (Voltaren 1% Gel) 4 gm TOP TID [facility] Last Admin: 02/09/20 08:13 Dose: 1 applic Donepezil HCl (Aricept) 10 mg PO DAILY [facility] Last Admin: 02/09/20 08:03 Dose: 10 mg Gabapentin (Neurontin) 200 mg PO BID [facility] Last Admin: 02/09/20 08:06 Dose: 200 mg Ibuprofen (Motrin) 200 mg PO Q6H PRN PRN Reason: Pain (mild 1-3) Last Admin: 02/08/20 20:12 Dose: 200 mg Indapamide (Indapamide) 1.25 mg PO MoWeFr@0800 [facility] Levothyroxine Sodium (Synthroid) 88 mcg PO SUTUWETHSA [facility] Last Admin: 02/09/20 08:31 Dose: 88 mcg Levothyroxine Sodium (Synthroid) 132 mcg PO MOFR [facility] Lisinopril (Prinivil) 20 mg PO DAILY [facility] Last Admin: 02/09/20 08:06 Dose: 20 mg Magnesium Hydroxide (Milk Of Magnesia) 30 ml PO DAILY PRN PRN Reason: Constipation Memantine (Namenda) 10 mg PO BID [facility] Last Admin: 02/09/20 08:05 Dose: 10 mg Metoprolol Tartrate (Lopressor) 25 mg PO BID [facility] Last Admin: 02/09/20 08:04 Dose: 25 mg Mirtazapine (Remeron) 30 mg PO BEDTIME [facility] Last Admin: 02/08/20 20:12 Dose: 30 mg Ondansetron HCl (Zofran Odt) 4 mg PO Q6H PRN PRN Reason: nausea, able to take PO Potassium Chloride (Klor-Con 10) 10 meq PO DAILY [facility] Last Admin: 02/09/20 08:03 Dose: 10 meq Quetiapine Fumarate (Seroquel) 50 mg PO TID [facility] Last Admin: 02/09/20 08:07 Dose: 50 mg Quetiapine Fumarate (Seroquel) 25 mg PO BID PRN PRN Reason: Agitation Last Admin: 02/08/20 19:18 Dose: 25 mg Sertraline HCl (Zoloft) 25 mg PO DAILY [facility] Last Admin: 02/09/20 08:32 Dose: 25 mg Tramadol HCl (Ultram) 50 mg PO Q8H PRN PRN Reason: Pain Last Admin: 02/09/20 08:08 Dose: 50 mg Discontinued Medications Tramadol HCl (Ultram) 50 mg PO ONETIME ONE Stop: 02/08/20 13:36 Last Admin: 02/08/20 13:43 Dose: 50 mg - Exam General: Alert, Oriented (to person only), Cooperative, No Acute Distress Lungs: Clear to Auscultation, Normal Respiratory Effort, Other (Right posterior chest wall TTP.) Cardiovascular: Regular Rate, Regular Rhythm GI/Abdominal Exam: Normal Bowel Sounds, Soft, Non-Tender, No Distention Extremities: Non-Tender (bilateral knees), Pedal Edema (trace). No: Joint Swelling Sepsis Event Note - Evaluation Sepsis Screening Result: No Definite Risk - Focused Exam Vital Signs: Vital Signs Temp Temp Pulse Pulse Resp BP BP 02/09/20 08:06 167/86 H 02/09/20 08:04 71 167/86 H 02/09/20 07:20 97.5 F 71 20 167/86 H 02/09/20 04:00 97.4 F 84 20 156/64 H 02/09/20 00:00 97.2 F 86 20 168/72 H Pulse Ox 02/09/20 08:06 02/09/20 08:04 02/09/20 07:20 93 L 02/09/20 04:00 96 02/09/20 00:00 96 Date Exam was Performed: 02/09/20 Time Exam was Performed: 09:55 - Problem List & Annotations (1) Recurrent falls SNOMED Code(s): 329590684 Code(s): R29.6 - REPEATED FALLS Status: Acute Current Visit: Yes Onset Date: ~02/06/20 Annotation/Comment:: and 02/07/2020 (2) Right-sided chest wall pain SNOMED Code(s): 315254915, 353483042 Code(s): R07.89 - OTHER CHEST PAIN Status: Acute Current Visit: Yes Onset Date: ~02/07/20 (3) Left knee pain SNOMED Code(s): 81053926 Code(s): M25.562 - PAIN IN LEFT KNEE Status: Acute Current Visit: Yes Onset Date: ~02/06/20 (4) UTI (urinary tract infection) SNOMED Code(s): 41745125 Code(s): N39.0 - URINARY TRACT INFECTION, SITE NOT SPECIFIED Status: Acute Current Visit: Yes Qualifiers: Urinary tract infection type: site unspecified Hematuria presence: without hematuria Qualified Code(s): N39.0 - Urinary tract infection, site not specified Annotation/Comment:: awaiting gram stain results. (5) Dementia with behavioral disturbance SNOMED Code(s): 0766311795865 Code(s): F03.91 - UNSPECIFIED DEMENTIA WITH BEHAVIORAL DISTURBANCE Status: Chronic Current Visit: Yes Qualifiers: Dementia type: unspecified type Qualified Code(s): F03.91 - Unspecified dementia with behavioral disturbance (6) Adult hypothyroidism SNOMED Code(s): 15003604 Code(s): E03.9 - HYPOTHYROIDISM, UNSPECIFIED Status: Chronic Current Visit: Yes (7) Hypertension SNOMED Code(s): 32344089 Code(s): I10 - ESSENTIAL (PRIMARY) HYPERTENSION Status: Chronic Current Visit: Yes Qualifiers: Hypertension type: essential hypertension Qualified Code(s): I10 - Essential (primary) hypertension - Problem List Review Problem List Initiated/Reviewed/Updated: Yes - My Orders Last 24 Hours: My Active Orders 02/08/20 16:36 Antiembolic Devices [RC] .Routine Oxygen Therapy [RC] PRN Up With Assistance [RC] ASDIRECTED Up to Chair [RC] ASDIRECTED VTE/DVT Education [RC] Per Unit Routine Vital Signs [RC] 08,12,16,20,00,04 OT Evaluation and Treatment [CONS] Routine Ibuprofen [Motrin] 200 mg PO Q6H PRN Ondansetron [Zofran ODT] 4 mg PO Q6H PRN Antiembolic Hose [OM.PC] Per Unit Routine Resuscitation Status Routine 02/08/20 16:40 Magnesium Hydroxide [Milk of Magnesia] 30 ml PO DAILY PRN QUEtiapine [SEROqueL] 25 mg PO BID PRN traMADol [Ultram] 50 mg PO Q8H PRN 02/08/20 17:00 cefTRIAXone [Rocephin] 1 gm IM Q24H 02/08/20 21:00 Diclofenac Sodium [Voltaren 1% Gel] 4 gm TOP TID Gabapentin [Neurontin] 200 mg PO BID Memantine [Namenda] 10 mg PO BID Metoprolol Tartrate [Lopressor] 25 mg PO BID Mirtazapine [Remeron] 30 mg PO BEDTIME QUEtiapine [SEROqueL] 50 mg PO TID 02/08/20 Dinner Regular Diet [DIET] 02/09/20 09:00 Aspirin [Halfprin] 81 mg PO DAILY Cholecalciferol (Vitamin D3) [Vitamin D3] 25 mcg PO DAILY Clopidogrel [Plavix] 75 mg PO DAILY Cyanocobalamin (Vitamin B12) [Vitamin B12] 1,000 mcg PO DAILY Donepezil [Aricept] 10 mg PO DAILY Levothyroxine [Synthroid] 88 mcg PO SUTUWETHSA Potassium Chloride [Klor-Con 10] 10 meq PO DAILY Sertraline [Zoloft] 25 mg PO DAILY amLODIPine [Norvasc] 5 mg PO DAILY lisinopriL [Prinivil] 20 mg PO DAILY 02/10/20 06:00 PT Evaluation and Treatment [CONS] Routine 02/10/20 08:00 Indapamide 1.25 mg PO MoWeFr@0800 02/10/20 09:00 Levothyroxine [Synthroid] 132 mcg PO MOFR - Plan Plan:: 1. Rocephin 1 g IM q24h while UC is pending. 2. PT/OT consult for Monday am. 3. Tramadol 50 mg q8h as needed pain, Ibuprofen low dose 200 mg as needed will not affect her kidney function. Creatinine improved to 1.6. 4. Anticipate discharge to [facility] on Monday after PT/OT assessment with Home Health with therapies.
[2020-02-09] MEDS: Ibuprofen 200 MG Tab PO PRN ×2 (13:36→20:59)
[2020-02-09] MEDS: Mirtazapine 30 MG Tab PO SCH (20:41)
[2020-02-10] MEDS: traMADol 50 MG Tab PO PRN (05:58)
[2020-02-10] MEDS ORDERED: INDAPAMIDE 2.5 MG PO SCH (08:00)
[2020-02-10] MEDS ORDERED: Aspirin 81 MG Tab.Chew *PTOM PO SCH (09:00)
[2020-02-10] MEDS ORDERED: QUEtiapine 25 MG Tab *PTOM PO SCH ×2 (09:00→12:00)
[2020-02-10] MEDS ORDERED: Gabapentin 100 MG Cap *PTOM PO SCH (09:00)
[2020-02-10] MEDS ORDERED: QUEtiapine 50 MG Tab *PTOM PO SCH ×2 (09:00→12:00)
[2020-02-10] MEDS ORDERED: Levothyroxine 88 MCG Tab *PTOM PO SCH (09:00)
[2020-02-10] MEDS: Metoprolol Tartrate 25 MG Tab *PTOM PO SCH (09:25)
[2020-02-10] MEDS: Cyanocobalamin (Vitamin B12) 1,000 MCG Tab *PTOM PO SCH (09:25)
[2020-02-10] MEDS: Cholecalciferol (Vitamin D3) 25 MCG Tab *PTOM PO SCH (09:25)
[2020-02-10] MEDS: Memantine 10 MG Tab *PTOM PO SCH (09:26)
[2020-02-10] MEDS: Lisinopril 20 MG Tab *PTOM PO SCH (09:26)
[2020-02-10] MEDS: Potassium Chloride 10 MEQ Tab.ER *PTOM PO SCH (09:26)
[2020-02-10] MEDS: Clopidogrel 75 MG Tab *PTOM PO SCH (09:26)
[2020-02-10] MEDS: amLODIPine 5 MG Tab *PTOM PO SCH (09:26)
[2020-02-10] MEDS: Diclofenac Sodium 1% Gel 100 GM Tube TOP SCH (09:28)
--- NOTE | 2020-02-10 14:08 | PCM.DCSUM1 ---
Discharge Summary - Hospital Course HPI Initial Comments: Lissy is an 84 yr old female who was brought in by her daughter to ER with history of recurrent falls over the past 2 days. Fell initially on , was complaining of left knee pain but got up and was ambulating on it. Fell again yesterday, complaining of right side chest pain which worsened today. History of Dementia, in the memory care unit at [facility], has wander guard on left leg. Jyothi, her daughter has not seen her since July due to COVID restrictions at [facility], does not feel her confusion is worse. She is on Seroquel as she was having more wild behaviors which has stabilized with the medication. Jyothi stated that Dr Melendez was hoping to decrease it to the lowest dose while maintaining symptom control. She has not had loss of appetite, eats all her food. Does not wear hearing aids. No shortness of breath , sinus symptoms, fevers, chills, abdominal pain. CT head to pelvis was negative for acute changes. Slightly cloudy urine with some bacteria on straight cathed urine/ Knee x-ray was negative for fracture. Jyothi will be bringing her medications from [facility]) for her use. She is a DNR/ DNI. Gets agitated on acetaminophen. Has urine incontinence, wears briefs. Wears PAWEL hose at [facility]. Diagnosis: Stroke: No - Discharge Data Discharge Date: 02/10/20 ([facility]) Discharge Disposition: Home, W Home Health Agency 06 Condition: Fair - Referral to Home Health Date of Face to Face Encounter: 02/10/20 Reason for Homebound Status: [facility] Memory Unit Primary Care Physician: Jojo Choi NP Skilled Need: PT/OT - Discharge Diagnosis/Problem(s) (1) Recurrent falls SNOMED Code(s): 111051826 ICD Code: R29.6 - REPEATED FALLS Status: Acute Onset Date: ~02/06/20 Problem Details: and 02/07/2020 (2) Right-sided chest wall pain SNOMED Code(s): 058474450, 660512403 ICD Code: R07.89 - OTHER CHEST PAIN Status: Acute Onset Date: ~02/07/20 (3) Left knee pain SNOMED Code(s): 00655565 ICD Code: M25.562 - PAIN IN LEFT KNEE Status: Acute Onset Date: ~ (4) UTI (urinary tract infection) SNOMED Code(s): 32017732 ICD Code: N39.0 - URINARY TRACT INFECTION, SITE NOT SPECIFIED Status: Ruled -out Problem Details: awaiting gram stain results. Qualifiers: Urinary tract infection type: site unspecified Hematuria presence: without hematuria Qualified Code(s): N39.0 - Urinary tract infection, site not specified (5) Dementia with behavioral disturbance SNOMED Code(s): 5375233243077 ICD Code: F03.91 - UNSPECIFIED DEMENTIA WITH BEHAVIORAL DISTURBANCE Status : Chronic Qualifiers: Dementia type: unspecified type Qualified Code(s): F03.91 - Unspecified dementia with behavioral disturbance (6) Adult hypothyroidism SNOMED Code(s): 86862890 ICD Code: E03.9 - HYPOTHYROIDISM, UNSPECIFIED Status: Chronic (7) Hypertension SNOMED Code(s): 05883118 ICD Code: I10 - ESSENTIAL (PRIMARY) HYPERTENSION Status: Chronic Qualifiers: Hypertension type: essential hypertension Qualified Code(s): I10 - Essential (primary) hypertension - Patient Summary/Data Consults: Consultations 02/08/20 16:36 OT Evaluation and Treatment [CONS] Routine Please Evaluate and Treat. OT Reason for Consult: ADL's Pending Discharge: Yes Discharge Disposition: Home w Home Health This query below is only for informational purposes and is not editable. Admission Diagnosis/Problem: Ambulatory dysfunction 02/10/20 06:00 PT Evaluation and Treatment [CONS] Routine Please Evaluate and Treat. PT Reason for Consult: Ambulation Pending Discharge: Yes: 02/10/2020 Discharge Disposition: Home w Home Health This query below is only for informational purposes and is not editable. Admission Diagnosis/Problem: Ambulatory dysfunction Hospital Course: Lissy was admitted for observation for recurrent falls and suspected UTI, Urine culture on Monday did not have any growth so Rocephin was discontinued. She was agitated on Monday night, requiring Seroquel 25 mg as needed dose, she did not require any extra doses after Monday night. Her scheduled dose of Seroquel was entered on admission as 50 mg tid but pharmacy today verified that her dose is actually 75 mg tid so this was updated and she got her correct dose this morning. Her pain was controlled with Tramadol every 8 hours and low dose Ibuprofen 200 mg q6h as needed, received about 3 doses with her Creatinine improving to 1.6 during her stay. PT/OT evaluated on Monday and both recommended Home Health with therapy services. Will follow up with Nephrology as previously scheduled and either follow up with Jojo Choi in 1 week or keep her appointment with Dr Melendez for hospital follow up and possible weaning of Aricept & Namenda as daughter was inquiring of weaning her off some of her medications. - Patient Instructions Diet: Regular Diet as Tolerated Driving: Do Not Drive Showering/Bathing: May Shower Notify Provider of: Increased Pain, Swelling and Redness Other/Special Instructions: Follow up with Dr Melendez or Jojo Choi in 1 week. [facility] with PT/OT services for recurrent falls. - Discharge Plan *PRESCRIPTION DRUG MONITORING PROGRAM REVIEWED*: Yes *COPY OF PRESCRIPTION DRUG MONITORING REPORT IN PATIENT ZORAIDA: Not Applicable Prescriptions/Med Rec: Ibuprofen [Motrin] 200 mg PO Q6H PRN #28 tablet PRN Reason: Pain (Mild 1-3) traMADol [Ultram] 50 mg PO Q8H PRN 7 Days #21 tablet PRN Reason: Pain Home Medications: Home Meds Aspirin [Halfprin] 81 mg PO DAILY 02/08/20 [History] Cholecalciferol (Vitamin D3) [Vitamin D3] 1,000 units PO DAILY 02/08/20 [History ] Clopidogrel Bisulfate [Clopidogrel] 75 mg PO DAILY 02/08/20 [History] Cyanocobalamin (Vitamin B-12) [Vitamin B-12] 1,000 mcg PO DAILY 02/08/20 [ History] Diclofenac Sodium [Voltaren 1% Gel] 4 gram TOP TID 02/08/20 [History] Donepezil HCl [Aricept] 10 mg PO BEDTIME 02/08/20 [History] Gabapentin [Neurontin] 200 mg PO TID 02/08/20 [History] Indapamide 1.25 mg PO MOWEFR 02/08/20 [History] Levothyroxine [Synthroid] 88 mcg PO SUTUWETHSA 02/08/20 [History] Levothyroxine [Synthroid] 132 mcg PO MOFR 02/08/20 [History] Magnesium Hydroxide [Milk of Magnesia] 30 ml PO DAILY PRN 02/08/20 [History] Memantine HCl [Namenda] 10 mg PO BID 02/08/20 [History] Metoprolol Tartrate 25 mg PO BID 02/08/20 [History] Mirtazapine [Remeron] 30 mg PO BEDTIME 02/08/20 [History] Potassium Chloride [Klor-Con 10] 10 meq PO DAILY 02/08/20 [History] QUEtiapine [SEROquel] 25 mg PO BID PRN 02/08/20 [History] QUEtiapine [SEROquel] 75 mg PO TID 02/08/20 [History] Sertraline [Zoloft] 25 mg PO BEDTIME 02/08/20 [History] amLODIPine [Norvasc] 5 mg PO DAILY 02/08/20 [History] lisinopriL [Lisinopril] 20 mg PO DAILY 02/08/20 [History] Ibuprofen [Motrin] 200 mg PO Q6H PRN #28 tablet 02/10/20 [Rx] traMADol [Ultram] 50 mg PO Q8H PRN 7 Days #21 tablet 02/10/20 [Rx] Forms: ED Department Discharge Referrals: Jojo Choi, [facility] [Primary Care Provider] - - Discharge Summary/Plan Comment DC Time >30 min.: No - General Info Date of Service: 02/10/20 Admission Dx/Problem (Free Text: Lissy is pleasantly confused this morning, ate most of her breakfast and was working on her fruit. Still a little sore on the right side. No other complaints. Functional Status: Reports: Pain Controlled, Tolerating Diet - Patient Data Vitals - Most Recent: Last Vital Signs Temp 97.8 F 02/10/20 02:59 Pulse 86 02/10/20 09:25 Resp 18 02/10/20 02:59 BP 135/76 02/10/20 09:26 Pulse Ox 94 L 02/10/20 02:59 Weight - Most Recent: 190 lb Lab Results - Last 24 hrs: Laboratory Results - last 24 hr 02/10/20 Range/Units 10:23 SARS Virus RNA (PCR) Negative (NEGATIVE) MEGHAN Results - Last 24 hrs: Microbiology 02/08/20 14:37 Urine Culture - Preliminary Urine, Catheterized NO GROWTH AFTER 1 DAY Med Orders - Current: Current Medications Discontinued Medications Amlodipine Besylate (Norvasc) 5 mg PO DAILY [facility] Last Admin: 02/10/20 09:26 Dose: 5 mg Aspirin (Halfprin) 81 mg PO DAILY [facility] Last Admin: 02/09/20 08:03 Dose: 81 mg Aspirin (Aspirin) 81 mg PO DAILY [facility] Last Admin: 02/10/20 09:26 Dose: 81 mg Ceftriaxone Sodium (Rocephin) 1 gm IM Q24H [facility] Last Admin: 02/08/20 18:09 Dose: 1 gm Cholecalciferol (Vitamin D3) 25 mcg PO DAILY [facility] Last Admin: 02/10/20 09:25 Dose: 25 mcg Clopidogrel Bisulfate (Plavix) 75 mg PO DAILY [facility] Last Admin: 02/10/20 09:26 Dose: 75 mg Cyanocobalamin (Vitamin B12) 1,000 mcg PO DAILY [facility] Last Admin: 02/10/20 09:25 Dose: 1,000 mcg Diclofenac Sodium (Voltaren 1% Gel) 4 gm TOP TID [facility] Last Admin: 02/10/20 09:28 Dose: 1 applic Donepezil HCl (Aricept) 10 mg PO DAILY [facility] Last Admin: 02/09/20 08:03 Dose: 10 mg Donepezil HCl (Aricept) 10 mg PO BEDTIME [facility] Gabapentin (Neurontin) 200 mg PO BID [facility] Last Admin: 02/09/20 20:42 Dose: 200 mg Gabapentin (Neurontin) 200 mg PO TID [facility] Last Admin: 02/10/20 09:26 Dose: 200 mg Ibuprofen (Motrin) 200 mg PO Q6H PRN PRN Reason: Pain (mild 1-3) Last Admin: 02/09/20 20:59 Dose: 200 mg Indapamide (Indapamide) 1.25 mg PO MoWeFr@0800 [facility] Last Admin: 02/10/20 09:26 Dose: 1.25 mg Levothyroxine Sodium (Synthroid) 88 mcg PO SUTUWETHSA [facility] Last Admin: 02/09/20 08:31 Dose: 88 mcg Levothyroxine Sodium (Synthroid) 132 mcg PO MOFR [facility] Last Admin: 02/10/20 09:27 Dose: 132 mcg Lisinopril (Prinivil) 20 mg PO DAILY [facility] Last Admin: 02/10/20 09:26 Dose: 20 mg Magnesium Hydroxide (Milk Of Magnesia) 30 ml PO DAILY PRN PRN Reason: Constipation Last Admin: 02/10/20 02:00 Dose: 30 ml Memantine (Namenda) 10 mg PO BID [facility] Last Admin: 02/10/20 09:26 Dose: 10 mg Metoprolol Tartrate (Lopressor) 25 mg PO BID [facility] Last Admin: 02/10/20 09:25 Dose: 25 mg Mirtazapine (Remeron) 30 mg PO BEDTIME [facility] Last Admin: 02/09/20 20:41 Dose: 30 mg Ondansetron HCl (Zofran Odt) 4 mg PO Q6H PRN PRN Reason: nausea, able to take PO Potassium Chloride (Klor-Con 10) 10 meq PO DAILY [facility] Last Admin: 02/10/20 09:26 Dose: 10 meq Quetiapine Fumarate (Seroquel) 50 mg PO TID [facility] Last Admin: 02/09/20 20:42 Dose: 50 mg Quetiapine Fumarate (Seroquel) 25 mg PO BID PRN PRN Reason: Agitation Last Admin: 02/08/20 19:18 Dose: 25 mg Quetiapine Fumarate (Seroquel) 25 mg PO TID [facility] Last Admin: 02/10/20 09:26 Dose: 25 mg Quetiapine Fumarate (Seroquel) 50 mg PO TID [facility] Last Admin: 02/10/20 09:25 Dose: 50 mg Quetiapine Fumarate (Seroquel) 50 mg PO 0900,1200,2100 [facility] Last Admin: 02/10/20 11:46 Dose: 50 mg Quetiapine Fumarate (Seroquel) 25 mg PO 0900,1200,2100 [facility] Last Admin: 02/10/20 11:46 Dose: 25 mg Sertraline HCl (Zoloft) 25 mg PO DAILY [facility] Last Admin: 02/09/20 08:32 Dose: 25 mg Sertraline HCl (Zoloft) 25 mg PO BEDTIME [facility] Tramadol HCl (Ultram) 50 mg PO ONETIME ONE Stop: 02/08/20 13:36 Last Admin: 02/08/20 13:43 Dose: 50 mg Tramadol HCl (Ultram) 50 mg PO Q8H PRN PRN Reason: Pain Last Admin: 02/10/20 05:58 Dose: 50 mg - Exam General: Reports: Alert, Oriented (to person only), Cooperative, No Acute Distress Lungs: Reports: Clear to Auscultation, Normal Respiratory Effort, Other (TTP on right lateral/posterior chest wall at T6 level) Cardiovascular: Reports: Regular Rate, Regular Rhythm GI/Abdominal Exam: Normal Bowel Sounds, Soft, Non-Tender, No Distention Extremities: Pedal Edema (1+ BLE) Skin: Reports: Warm, Dry, Intact *Q Meaningful Use (DIS) - VTE *Q VTE Mechanical Contraindications *Q: At Risk for Falls
--- NOTE | 2020-02-10 18:02 | CR ---
INDICATION: Fell with left knee pain. LEFT KNEE: Frontal and lateral portable views of the left knee revealed somewhat demineralized appearance raising question of osteomalacia or osteoporosis - correlate clinically. Calcifications are noted in the arteries posteriorly. Joint spaces appear to be grossly well maintained. No significant appearing hypertrophic degenerative changes are noted. A definite acute fracture or dislocation was not seen. IMPRESSION: No acute fracture or dislocation. MTDD
[2020-02-10] MEDS ORDERED: Donepezil 10 MG Tab *PTOM PO SCH (21:00)
[2020-02-10] MEDS ORDERED: Sertraline 25 MG Tab *PTOM PO SCH (21:00)
== END 2020-02-10 13:05 | disposition home health service (06) ==
LOC: FB.ED 12:50 → FB.MS 16:16
PROVIDERS: ADMIT Family Medicine; ATTEND Family Medicine
DX: R29.6 Repeated falls (principal); R53.1 Weakness; N30.00 Acute cystitis without hematuria; R07.89 Other chest pain; M25.562 Pain in left knee; F03.91 Unspecified dementia, unspecified severity, with behavioral disturbance; E03.9 Hypothyroidism, unspecified; E78.00 Pure hypercholesterolemia, unspecified; I12.9 Hypertensive chronic kidney disease with stage 1 through stage 4 chronic kidney disease, or unspecified chronic kidney disease; N18.3 Chronic kidney disease, stage 3 (moderate); Z20.828 Contact with and (suspected) exposure to other viral communicable diseases; Z66 Do not resuscitate; Z88.6 Allergy status to analgesic agent; Z79.82 Long term (current) use of aspirin; Z79.899 Other long term (current) drug therapy; Z79.890 Hormone replacement therapy
CPT/HCPCS: 36415; 70450; 71250; 72125; 73560; 74176; 80048; 80053; 81001; 83735; 85025; 87086; 96374; 97161; 97530; 99285; A9270; G0378; J0696; U0002